=== PATIENT | female | born 1980 | race Caucasian/White ===

== ENCOUNTER 2016-11-10 10:25 | Emergency (ER) | END 2016-11-10 13:59 | disposition home or self-care (01) | DX: R51 Headache (principal); R06.02 Shortness of breath; J45.909 Unspecified asthma, uncomplicated; R11.0 Nausea; Z79.82 Long term (current) use of aspirin | CPT/HCPCS: 70450; 71010; 93005; 96374; 96375; J1200; J1885; J2765; J7030; Z7502 ==

== ENCOUNTER 2017-01-19 19:59 | Emergency (ER) | payer SELFPAY ==
[~2017-01-19] VITALS: Ht 167.6 cm; Wt 104.0 kg
[~2017-01-19 19:59] MED LIST: ASPI1TAB30 PO; BAC30OI TOP; ONDA4TAB8 PO; RANI150T5 PO; SUCR1TAB56 PO
[2017-01-19 20:25] VITALS: Ht 167.6 cm; Wt 104.0 kg
[2017-01-19] MEDS ORDERED: ONDANSETRON 4 MG INJ IM STA (21:09)
[2017-01-19] MEDS ORDERED: ONDA4TAB8 PO (21:12)
[2017-01-19] MEDS ORDERED: ALBU8.5H3 INH (21:12)
[2017-01-19] MEDS ORDERED: IBUP-1542 PO (21:12)
[2017-01-19] MEDS ORDERED: IBUPROFEN 600 MG TAB PO ONE (21:30)
--- NOTE | 2017-01-19 22:24 | ERD ---
ER Documentation Chief Complaint Date/Time DATE: 01/19/17 TIME: 22:21 Chief Complaint FEVER, COUGH, SORE THROAT, N/V, CP ON INSPIRATION X 3 DAYS HPI 36-year-old woman complains of sore throat cough, nasal congestion, rhinorrhea, one episode of clear nonbloody nonbilious emesis today. She states she has a history of asthma but denies wheezing and has albuterol pump at home. She has had no calf or leg swelling, no abdominal pain, no diarrhea, no blood per rectum or melena. Patient denies recent travel or recent antibiotic use. Patient is a non-smoker. ROS All systems reviewed and are negative except as per history of present illness. Medications Home Meds Active Scripts Ondansetron Hcl* (Zofran*) 4 Mg Tablet, 4 MG PO Q8H Y for NAUSEA AND/OR VOMITING , #15 TAB Prov:ROBERT PLUNKETT MD 01/19/17 Ibuprofen* (Ibuprofen*) 600 Mg Tablet, 600 MG PO Q8 for PAIN AND/OR INFLAMMATION , #30 TAB Prov:ROBERT PLUNKETT MD 01/19/17 Albuterol Sulfate* (Proair HFA*) 8.5 Gm Hfa.aer.ad, 2 PUFF INH Q6H Y for WHEEZING AND SOB, #1 INHALER Prov:ROBERT PLUNKETT MD 01/19/17 Ondansetron Hcl* (Zofran*) 4 Mg Tablet, 4 MG PO Q6H for NAUSEA AND/OR VOMITING, #30 TAB Prov:GRISEL CANALES PA-C 11/10/16 Aspirin/Acetaminophen/Caffeine (Excedrin Migraine Caplet) 1 Each Tablet, 1 EACH PO BID for 10 Days, TAB Prov:GRISEL CANALES PA-C 11/10/16 Bacitracin* (Bacitracin Zinc Oint*) 28.35 Gm Oint, 1 APPLIC TOP BID for 5 Days, TUB APPLI TO Prov:ALLISON MCKENZIE 05/14/15 Reported Medications Ranitidine Hcl* (Ranitidine Hcl*) 150 Mg Tablet, 150 MG PO Q12, TAB 05/22/14 Sucralfate* (Carafate*) 1 Gm Tab, 1 GM PO QID, TAB 05/22/14 Allergies Allergies: Coded Allergies: No Known Allergy (Unverified , 03/21/13) PMhx/Soc Asthma, obesity, gastritis History of Surgery: Yes (HYSTERECTOMY, TUBAL LIGATION) Anesthesia Reaction: No Hx Neurological Disorder: No Hx Respiratory Disorders: Yes (ASTHMA) Hx Cardiac Disorders: No Hx Psychiatric Problems: No Hx Miscellaneous Medical Probl: No Hx Alcohol Use: No Hx Substance Use: No Hx Tobacco Use: No Smoking Status: Never smoker FmHx Family History: No diabetes Physical Exam Vitals Vital Signs Date Time Temp Pulse Resp B/P Pulse Ox O2 Delivery O2 Flow Rate FiO2 01/19/17 20:25 98.5 113 22 120/59 100 Physical Exam GENERAL: Well-developed, well-nourished, well-hydrated, in no apparent distress , looks nontoxic in appearance HEENT: Moist mucous membranes, positive nasal congestion, no goiter, no jaundice or icterus, extraocular movements intact without pain. No submandibular induration, and no pharyngeal erythema NEURO: Alert and oriented 3, cranial nerves II through XII intact bilaterally, pupils equal round reactive to light, no focal deficits or facial asymmetry, sensation intact distally Strength 5/5 in upper and lower extremities bilaterally CARDIAC: Regular rate and rhythm, no murmurs rubs or gallops LUNGS: Clear bilaterally no wheezing crackles or stridor ABDOMEN: Soft nontender, no guarding, no rigidity, no rebound, no psoas sign no obturator sign. Normoactive bowel sounds SKIN: Warm and dry to touch, no abrasions, contusions, or hematomas, no lacerations, no ecchymosis, no target lesions, and without ulcers EXTREMITIES: No clubbing cyanosis or edema, calves are bilaterally symmetrical, no Homans sign, no popliteal cord sign. Distal pulses equal and bilateral PSYCH: Normal affect without agitation or irritability Results 24 hrs Current Medications Medications (Trade) Dose Ordered Sig/Curly Route PRN Reason Start Time Stop Time Status Last Admin Dose Admin Ondansetron HCl (Zofran Inj) 4 mg ONCE STAT IM 01/19/17 21:09 01/19/17 21:10 DC 01/19/17 21:39 Ibuprofen (Motrin) 600 mg ONCE ONCE PO 01/19/17 21:30 01/19/17 21:31 DC 01/19/17 21:39 Procedures/MDM I administered ibuprofen 600 mg p.o. and Zofran 4 mg intramuscular injection for her symptoms. Patient has no concerning signs or symptoms on HPI or concerning physical exam findings. Her vital signs are normal and she can be managed as an outpatient. I did tell her to return if she develops fever, abdominal pain, or shortness of breath. Differential diagnoses considered, included but not limited to acute coronary syndrome, pulmonary embolism, aortic dissection, abdominal aortic aneurysm, sepsis, stroke, meningitis, encephalitis, pneumonia, appendicitis, cholecystitis , bowel obstruction, pyelonephritis, nephrolithiasis, cystitis, as well as metabolic, hematologic, and electrolyte abnormalities. As well as abscess, cellulitis, fractures, and dislocations. Patient feels much better at this time, and vital signs are normal, symptoms have improved. I did give strict instructions to return to the ED if symptoms continue or worsen, patient will otherwise follow-up with primary care physician. Patient understood instructions and agreed to plan. Departure Diagnosis: Primary Impression: Vomiting Vomiting type: unspecified Vomiting Intractability: non-intractable Nausea presence: with nausea Qualified Code: R11.2 - Non-intractable vomiting with nausea, unspecified vomiting type Additional Impression: URI, acute Condition: Good Patient Instructions: Uri, Viral, No Abx (Adult), Vomiting (6Y-Adult) ROBERT PLUNKETT MD Jan 19, 2017 22:24
== END 2017-01-19 21:45 | disposition home or self-care (01) ==
LOC: FTE 19:59
DX: R11.2 Nausea with vomiting, unspecified (principal); J06.9 Acute upper respiratory infection, unspecified; J45.909 Unspecified asthma, uncomplicated; E66.9 Obesity, unspecified; Z79.82 Long term (current) use of aspirin; Z68.37 Body mass index [BMI] 37.0-37.9, adult
CPT/HCPCS: 96372; 99284; J2405

== ENCOUNTER 2017-04-27 13:08 | Emergency (ER) | END 2017-04-27 14:38 | disposition home or self-care (01) | DX: M54.42 Lumbago with sciatica, left side (principal); J45.909 Unspecified asthma, uncomplicated; Z79.82 Long term (current) use of aspirin | CPT/HCPCS: 81003; 96372; J1885; Z7502 ==

== ENCOUNTER 2019-05-29 15:58 | Emergency (ER) | payer OTHER ==
[~2019-05-29] VITALS: Ht 167.6 cm; Wt 99.2 kg
[~2019-05-29 15:58] MED LIST changes: +ALBU8.5H8 INH; -ASPI1TAB30 PO; +ASPI1TAB31 PO; -BAC30OI TOP; +BACI28.34 TOP; +CARI350T PO; +HYDR-4011 PO; +IBUP-1542 PO
[2019-05-29 16:06] VITALS: Ht 167.6 cm; Wt 99.2 kg
--- NOTE | 2019-05-29 18:45 | ERD ---
ER Documentation Chief Complaint Chief Complaint LOWER BACK PAIN X 3 DAYS HPI The patient is a 39-year-old female, presenting to the ER because of chronic low back pain, worse for the last 3 days, denies fever, chills, neck pain, chest pain, dyspnea, vomiting, dysuria, complains of constipation. She does not smoke nor drink Past medical history: Asthma, chronic low back pain Past surgical history: Hysterectomy ROS All systems reviewed and are negative except as per history of present illness. Medications Home Meds Active Scripts Hydrocodone/Acetaminophen ([place] 5-325 Tablet) 1 Each Tablet, 1 TAB PO Q6H PRN for PAIN, #7 TAB Prov:SARAH KAPOOR MD 05/29/19 Carisoprodol* (Soma*) 350 Mg Tablet, 350 MG PO TID PRN for MUSCLE SPASMS, #15 TAB Prov:SARAH KAPOOR MD 05/29/19 Ibuprofen* (Motrin*) 600 Mg Tab, 600 MG PO Q6, #30 TAB Prov:SISI ADRIAN PA-C 04/27/17 Hydrocodone/Acetaminophen ([place] 5-325 Tablet) 1 Each Tablet, 1 TAB PO Q6H PRN for PAIN, #7 TAB Prov:SISI ADRIAN PA-C 04/27/17 Ondansetron Hcl* (Zofran*) 4 Mg Tablet, 4 MG PO Q8H PRN for NAUSEA AND/OR VOMITING, #15 TAB Prov:ROBERT PLUNKETT MD 01/19/17 Ibuprofen* (Ibuprofen*) 600 Mg Tablet, 600 MG PO Q8 for PAIN AND/OR INFLAMMATION, #30 TAB Prov:ROBERT PLUNKETT MD 01/19/17 Albuterol Sulfate* (Proair HFA*) 8.5 Gm Hfa.aer.ad, 2 PUFF INH Q6H PRN for WHEEZING AND SOB, #1 INHALER Prov:ROBERT PLUNKETT MD 01/19/17 Ondansetron Hcl* (Zofran*) 4 Mg Tablet, 4 MG PO Q6H for NAUSEA AND/OR VOMITING, #30 TAB Prov:GRISEL CANALES PA-C 11/10/16 Aspirin/Acetaminophen/Caffeine (Excedrin Migraine Caplet) 1 Each Tablet, 1 EACH PO BID for 10 Days, TAB Prov:GRISEL CANALES PA-C 11/10/16 Bacitracin* (Bacitracin Zinc Oint*) 28.35 Gm Oint, 1 APPLIC TOP BID for 5 Days, TUB APPLI TO Prov:ALLISON MCKENZIE Donovan 05/14/15 Reported Medications Ranitidine Hcl* (Ranitidine Hcl*) 150 Mg Tablet, 150 MG PO Q12, TAB 05/22/14 Sucralfate* (Carafate*) 1 Gm Tab, 1 GM PO QID, TAB 05/22/14 Allergies Allergies: Coded Allergies: No Known Allergy (Unverified , 03/21/13) PMhx/Soc History of Surgery: Yes (HYSTERECTOMY, TUBAL LIGATION) Anesthesia Reaction: No Hx Neurological Disorder: No Hx Respiratory Disorders: Yes (ASTHMA) Hx Cardiac Disorders: No Hx Psychiatric Problems: No Hx Miscellaneous Medical Probl: No Hx Alcohol Use: No Hx Substance Use: No Hx Tobacco Use: No Physical Exam Vitals Vital Signs Date Temp Pulse Resp B/P (MAP) Pulse Ox O2 O2 Flow FiO2 Time Delivery Rate 05/29/19 99.2 81 18 130/81 100 Room Air 19:48 (97) 05/29/19 82 18 127/71 100 Room Air 18:56 (89) 05/29/19 99.2 76 18 144/70 98 16:06 (94) Physical Exam Const: No acute distress. Head: Atraumatic. Eyes: Normal Conjunctiva. ENT: Normal External Ears, Nose and Mouth. Neck: Full range of motion. No meningismus. Resp: Clear to auscultation bilaterally. Cardio: Regular rate and rhythm. Abd: Soft, non distended, normal bowel sounds, no CVA tender. Skin: No petechiae or rashes. Back: No midline or flank tenderness. Ext: No cyanosis, or edema. Neur: Awake and alert. No focal deficit Psych: Normal Mood and Affect. Results 24 hrs Laboratory Tests Test 05/29/19 19:06 Bedside Urine pH (LAB) 6.5 Bedside Urine Protein (LAB) Negative Bedside Urine Glucose (UA) Negative Bedside Urine Ketones (LAB) Negative Bedside Urine Blood 2+ Bedside Urine Nitrite (LAB) Negative Bedside Urine Leukocyte Esterase (L Negative Current Medications Medications Dose Sig/Curly Start Time Status Last (Trade) Ordered Route PRN Stop Time Admin Dose Reason Admin Ketorolac 60 mg ONCE STAT 05/29/19 DC 05/29/19 Tromethamine IM 18:58 19:40 (Toradol) 05/29/19 18:59 Procedures/MDM MEDICAL MAKING DECISION: The patient is a 39-year-old female, presenting with chronic low back pain, hematuria, was treated with Toradol 60 mg IM for pain with good response, is stable for outpatient follow-up The differential diagnoses considered include but are not limited to cholelithiasis, cholecystitis, choledocholithiasis, cholangitis, pancreatitis, hepatitis, gastritis, peptic ulcer disease, gastric ulcer, appendicitis, cystitis, diverticulitis, partial small bowel obstruction. Departure Diagnosis: Primary Impression: Back pain Additional Impression: Hematuria Condition: Good Comments She was discharged with 7 tablets of [place] 5 mg and Soma I discussed the findings with the patient. I advised the patient to follow-up with the primary physician in about 1-2 days, sooner if needed and return if any concern. Disclaimer: Inadvertent spelling and grammatical errors are likely due to EHR/dictation software use and do not reflect on the overall quality of patient care. Also, please note that the electronic time recorded on this note does not necessarily reflect the actual time of the patient encounter. SARAH KAPOOR MD May 29, 2019 18:45
[2019-05-29] MEDS ORDERED: KETOROLAC 60 MG INJ IM STA (18:58)
[2019-05-29 19:48] VITALS: BP 130/81; PULSE 81; RESP 18
== END 2019-05-29 19:49 | disposition home or self-care (01) ==
LOC: E/R 15:58
DX: M54.5 Low back pain (principal); R31.9 Hematuria, unspecified; J45.909 Unspecified asthma, uncomplicated; Z79.82 Long term (current) use of aspirin
CPT/HCPCS: 81003; 96372; J1885; Z7502